=== PATIENT | female | born 1975 | race Caucasian/White ===

== ENCOUNTER → 2016-11-30 | Outpatient (CLI) | payer BC | LOC: US 13:00 | DX: R10.9 Unspecified abdominal pain (principal); N83.202 Unspecified ovarian cyst, left side; D25.9 Leiomyoma of uterus, unspecified | CPT/HCPCS: 76856 ==

== ENCOUNTER → 2021-01-20 | Outpatient (CLI) | payer BC, OTHER | LOC: HEART 5 09:23 | DX: I08.1 Rheumatic disorders of both mitral and tricuspid valves (principal) | CPT/HCPCS: 93306 ==

== ENCOUNTER → 2022-04-01 | Outpatient (CLI) | payer BC | LOC: KOH-I 12:15 | DX: M54.30 Sciatica, unspecified side (principal); M47.817 Spondylosis without myelopathy or radiculopathy, lumbosacral region | CPT/HCPCS: 72110 ==

== ENCOUNTER → 2022-04-14 | Outpatient (CLI) | payer BC | LOC: KOH-I 11:13 | DX: M47.26 Other spondylosis with radiculopathy, lumbar region (principal); R29.2 Abnormal reflex | CPT/HCPCS: 72148 ==